=== PATIENT | female | born 1980 | race Caucasian/White ===

== ENCOUNTER 2023-05-13 11:50 | Emergency (ER) | payer BC ==
[~2023-05-13] VITALS: Ht 157.5 cm; Wt 64.1 kg
[2023-05-13 11:55] VITALS: BP 107/72; PULSE 105; RESP 17; O2SAT 97
[2023-05-13] MEDS ORDERED: AMOX-117 PO (12:43)
[2023-05-13 14:56] VITALS: TEMP 97.9
== END 2023-05-13 15:01 | disposition home or self-care (01) ==
LOC: ER 11:51
DX: J32.0 Chronic maxillary sinusitis (principal)
CPT/HCPCS: 87502; 87503; 99283

== ENCOUNTER 2023-07-16 14:52 | Emergency (ER) | payer BC ==
[~2023-07-16] VITALS: Ht 157.5 cm; Wt 65.5 kg
[2023-07-16 15:00] VITALS: BP 122/64; PULSE 92; TEMP 98.7; O2SAT 99
[2023-07-16] MEDS ORDERED: dexamethasone sod phosphate 10mg/ml inj IM STA (15:01)
[2023-07-16] MEDS ORDERED: PRED20TA PO (15:03)
[2023-07-16] MEDS ORDERED: ketorolac trometh inj. 60 MG/2 ML VIAL IM ONE (15:05)
[2023-07-16] MEDS ORDERED: ketorolac trometh. 30mg/ml inj. IM ONE (15:05)
[2023-07-16 15:10] VITALS: RESP 16
== END 2023-07-16 15:18 | disposition home or self-care (01) ==
LOC: ER 14:53
DX: M25.522 Pain in left elbow (principal); Z88.5 Allergy status to narcotic agent; Z79.899 Other long term (current) drug therapy
CPT/HCPCS: 96372; 99284; J1100; J1885

== ENCOUNTER 2023-07-21 17:33 | Emergency (ER) | payer BC ==
[~2023-07-21] VITALS: Ht 157.5 cm; Wt 63.6 kg
[~2023-07-21 17:33] MED LIST: PRED20TA PO
[2023-07-21 17:36] VITALS: BP 114/68; PULSE 78; RESP 16; TEMP 98.2; O2SAT 97
[2023-07-21] MEDS: LIDOcaine 1% W/epiNEPHrine 1:100,000 20ml vial SQ ONE (18:20)
[2023-07-21] MEDS: methylPREDNISolone acetate 80mg/ml inj**IM only IM ONE (18:20)
[2023-07-21] MEDS: LIDOCAINE 1%/EPI 1:100,000 inj. 10 ML multi-dose vial SQ ONE (18:25)
[2023-07-21] MEDS ORDERED: HYDR-3973 PO (19:20)
== END 2023-07-21 19:42 | disposition home or self-care (01) ==
LOC: ER 17:33
DX: M77.01 Medial epicondylitis, right elbow (principal); Z88.5 Allergy status to narcotic agent
CPT/HCPCS: 99284